=== PATIENT | male | born 1965 | race Caucasian/White ===

== ENCOUNTER 2024-05-17 00:53 | Emergency (ER) | payer OTHER, SELFPAY ==
[2024-05-17 00:58] VITALS: BP 160/100; PULSE 44; RESP 18; TEMP 36.7; O2SAT 97; BMI 28.5
--- NOTE | 2024-05-17 01:05 | CTR_ITS ---
PROCEDURE INFORMATION: Exam: CT Abdomen And Pelvis Without Contrast Exam date and time: 05/17/2024 1:28 AM Age: 59 years old Clinical indication: Abdominal pain; Additional info: RT flank pain TECHNIQUE: Imaging protocol: Computed tomography of the abdomen and pelvis without contrast. Radiation optimization: All CT scans at this facility use at least one of these dose optimization techniques: automated exposure control; mA and/or kV adjustment per patient size (includes targeted exams where dose is matched to clinical indication); or iterative reconstruction. COMPARISON: No relevant prior studies available. RADIATION DOSE METRICS: Total DLP (mGy-cm): 794.3 FINDINGS: Lungs: Minimal basilar atelectasis. Heart: Base of heart is unremarkable as visualized. Liver: Normal. No mass. Gallbladder and biliary ducts: Normal. No calcified stones. No ductal dilation. Pancreas: Mild fatty atrophy of the pancreas. Spleen: Normal. No splenomegaly. Adrenal glands: Normal. No mass. Kidneys and ureters: Proximal 3rd of the right ureter demonstrates a punctate calcified urinary stone measuring up to 3.2 mm. Results in mild upstream ureterectasis, moderate pelviectasis, moderate hydronephrosis. Right kidney appears mildly edematous and hypertrophic upon comparison with the left normal-appearing kidney. Stomach and bowel: Mild colonic stool burden. Appendix: No evidence of appendicitis. Intraperitoneal space: Unremarkable. No free air. No significant fluid collection. Vasculature: Calcified pelvic phleboliths. Lymph nodes: Unremarkable. No enlarged lymph nodes. Urinary bladder: Unremarkable as visualized. Reproductive: Central dystrophic calcifications of the prostate. Bones/joints: Mild to moderate degenerative change of the visualized osseous structures. Soft tissues: Unremarkable. CT/CT abdomen pelvis wo con [id number] IMPRESSION: 1. Obstructing urinary stone within the proximal 3rd of the right ureter as detailed above. 2. Additional nonacute findings as above.
[2024-05-17] MEDS: sodium chloride 0.9% 1,000 ML 999 ML IV (01:12)
[2024-05-17] MEDS: HYDROmorphone 1 mg/mL INJ 1 mL IVP ×2 (01:13→02:24)
[2024-05-17] MEDS: ondansetron 2 mg/ML SDV 2 mL 8 MG IVP ×2 (01:13→02:21)
[2024-05-17 01:19] LABS: Basophils # 0.1 10^3/uL (0.0-0.1); Basophils % 1.2 %; Eosinophils # 0.1 10^3/uL (0.0-0.8); Eosinophils % 2.3 %; Hematocrit 40.3 % (37-53); Lymphocytes % 49.7 %; Mean Corpuscular Hemoglobin 30.4 pg (27-33); Mean Corpuscular Volume 89.6 fl (82-101); Mean Platelet Volume 9.7 fL (7.4-10.4); Monocytes # 0.6 10^3/uL (0.2-0.9); Monocytes % 9.2 %; Neutrophils # 2.23 10^3/uL (1.8-7.7); Neutrophils % 37.4 %; Nucleated Red Blood Cells % 0 %; Platelet Count 215 10^3/cmm (157-399); Red Cell Distribution Width 12.6 % (12.1-15.1); White Blood Count 5.96 10^3/uL (3.29-11.43)
[2024-05-17 01:36] LABS: Alanine Aminotransferase 27 U/L (0-41); Albumin Level 4.2 g/dL (3.5-5.2); Alkaline Phosphatase 78 U/L (40-130); Anion Gap 15.6 (5-19); Aspartate Amino Transferase 26 U/L (0-40); Blood Urea Nitrogen 22 mg/dL (6-20); Calcium 8.9 mg/dL (8.5-10.5); Carbon Dioxide 24 mmol/L (22-29); Chloride 102 mmol/L (98-107); Globulin 3.5 g/dL (1.3-4.6); Glucose 124 mg/dL (65-115); Lipase 42 U/L (13-60); Osmolality Calculated 291 mOsm/kg (285-295); Potassium 3.6 mmol/L (3.5-5.1); Sodium 138 mmol/L (136-145); Total Bilirubin 0.2 mg/dL (0.15-1.2); Total Protein 7.7 g/dL (6.6-8.7)
[2024-05-17 01:37] LABS: Lactic Sepsis W/Reflex 1.6 mmol/L (0.5-2.2)
--- NOTE | 2024-05-17 01:49 | ED_ITS ---
HPI - Abdominal Pain 2 General: Chief Complaint: Abdominal Pain Stated Complaint: Abd pain Time Seen by Provider: 05/17/24 01:00 History of Present Illness: 59-year-old man who presents emergency r oom with right flank pain, nausea and vomiting. Pain radiates into his right lower abdomen. He appears in some distress when he arrives. Diaphoretic and vomiting. No fevers. No diarrhea. No chest pain. No altered mental status Review of Systems 2 Narrative: Constitutional symptoms: Negative except as documented in HPI. Skin symptoms: Negative except as documented in HPI. Eye symptoms: Negative except as documented in HPI. ENMT symptoms: Negative except as documented in HPI. Respiratory symptoms: Negative except as documented in HPI. Cardiovascular symptoms: Negative except as documented in HPI. Gastrointestinal symptoms: Negative except as documented in HPI. Genitourinary symptoms: Negative except as documented in HPI. Musculoskeletal symptoms: Negative except as documented in HPI. Neurologic symptoms: Negative except as documented in HPI. Psychiatric symptoms: Negative except as documented in HPI. Endocrine symptoms: Negative except as documented in HPI. Physical Exam 2 Narrative: EXAM NARRATIVE: General: Alert, no acute distress. Skin: Warm, diaphoretic. Head: Normocephalic, atraumatic. Neck: Supple, trachea midline. Eye: Extraocular movements are intact. Ears, nose, mouth and throat: mucosa moist. Cardiovascular: Regular, Normal peripheral perfusion. Respiratory: Lungs are clear to auscultation, respirations are non-labored, breath sounds are equal, Symmetrical chest wall expansion. Gastrointestinal: Soft, right flank pain, Non distended Musculoskeletal: Normal ROM, no deformity. Neurological: Alert and oriented, No focal neurological deficit observed. Psychiatric: Cooperative, appropriate mood & affect. Course 2 Vital Signs: Vital signs: Vital Signs Temperature 98.0 F 05/17/24 00:58 Pulse Rate 41 L 05/17/24 02:28 Respiratory Rate 20 H 05/17/24 02:28 Blood Pressure 123/70 05/17/24 02:28 Pulse Oximetry 95 05/17/24 02:28 Oxygen Delivery Me thod Room Air 05/17/24 00:58 MDM - Abdominal Pain Medical Decision Making Medical decision making: Differential diagnosis including but not limited to and based on the above HPI, review of systems and physical exam: Ureterolithiasis. Urinary tract infection. Appendicitis. Cholecystis. Musculoskeletal / back pain. Pyelonephritis Orders placed to evaluate differential diagnosis based on the above differential, HPI and physical exam CT of the abdomen pelvis without contrast: There is some mild hydronephrosis on the right and a mid ureteral kidney stone. This was reviewed and interpreted by myself the emergency room physician. I also reviewed the radiology report. Lab Review: Laboratory results were reviewed and interpreted by myself the emergency room physician. No leukocytosis. No renal failure. LBM was up a little bit indicating some dehydration since fluids were given. Urine was positive for hematuria. CT of the abdomen pelvis without contrast: Mid ureteral 3 mm stone. Some hydronephrosis. This was reviewed and interpreted by myself the emergency room physician. I also reviewed the radiology report. I reviewed the patient's medical record. Reexamination: It took quite a bit of pain medicine but patient finally did receive some pain control. No altered mental status. No increased work of breathing. Assessment and plan: Ureterolithiasis Dehydration ?Normal saline bolus, Two 1 mg doses of Dilaudid. Two 8 mg doses of Zofran. IV Toradol. Home with 2 doses of [place]. - Discharged home - Discussed findings and plan with patient. Answered any questions. - All laboratory values were reviewed and interpreted personally by myself, the ER physician - All imaging was reviewed and interpreted personally by myself, the ER physician. - Evaluation and treatment of this problem were appropriate in the emergency setting Lab Data 05/17/24 01:05 05/17/24 01:05 Labs/Radiology: Radiology Impressions Abdomen/Pelvis CT 05/17/24 01:05 IMPRESSION: 1. Obstructing urinary stone within the proximal 3rd of the right ureter as detailed above. 2. Additional nonacute findings as above. Laboratory Results WBC 5.96 10^3/uL (3.29-11.43) 05/17/24 01:05 RBC 4.50 10^6/uL (3.85-5.65) 05/17/24 01:05 Hgb 13.70 g/dL (11.27-16.99) 05/17/24 01:05 Hct 40.3 % (37-53) 05/17/24 01:05 MCV 89.6 fl (82-101) 05/17/24 01:05 MCH 30.4 pg (27-33) 05/17/24 01:05 MCHC 34.0 g/dL (30-55) 05/17/24 01:05 RDW 12.6 % (12.1-15.1) 05/17/24 01:05 Plt Count 215 10^3/cmm (157-399) 05/17/24 01:05 MPV 9.7 fL (7.4-10.4) 05/17/24 01:05 Neut % (Auto) 37.4 % 05/17/24 01:05 Lymph % (Auto) 49.7 % 05/17/24 01:05 [place] % (Auto) 9.2 % 05/17/24 01:05 Eos % (Auto) 2.3 % 05/17/24 01:05 Baso % (Auto) 1.2 % 05/17/24 01:05 Neut # (Auto) 2.23 10^3/uL (1.8-7.7) 05/17/24 01:05 Lymph # (Auto) 3.0 10^3/uL (0.8-4.8) 05/17/24 01:05 [place] # (Auto) 0.6 10^3/uL (0.2-0.9) 05/17/24 01:05 Eos # (Auto) 0.1 10^3/uL (0.0-0.8) 05/17/24 01:05 Baso # (Auto) 0.1 10^3/uL (0.0-0.1) 05/17/24 01:05 Nucleated RBC % (auto) 0 % 05/17/24 01:05 Nucleated RBCs # 0.0 /100WBC 05/17/24 01:05 Sodium 138 mmol/L (136-145) 05/17/24 01:05 Potassium 3.6 mmol/L (3.5-5.1) 05/17/24 01:05 Chloride 102 mmol/L (98-107) 05/17/24 01:05 Carbon Dioxide 24 mmol/L (22-29) 05/17/24 01:05 Anion Gap 15.6 (5-19) 05/17/24 01:05 BUN 22 mg/dL (6-20) H 05/17/24 01:05 Creatinine 1.0 mg/dL (0.7-1.2) 05/17/24 01:05 GFR Calculation 77.0 mL/min (90-130) L 05/17/24 01:05 Glucose 124 mg/dL (65-115) H 05/17/24 01:05 Calculated Osmolality 291 mOsm/kg (285-295) 05/17/24 01:05 Lactic Acid 1.6 mmol/L (0.5-2.2) 05/17/24 01:05 Calcium 8.9 mg/dL (8.5-10.5) 05/17/24 01:05 Total Bilirubin 0.2 mg/dL (0.15-1.2) 05/17/24 01:05 AST 26 U/L (0-40) 05/17/24 01:05 ALT 27 U/L (0-41) 05/17/24 01:05 Alkaline Phosphatase 78 U/L (40-130) 05/17/24 01:05 C-Reactive Protein 3.0 mg/L (0.0-4.9) 05/17/24 01:05 Total Protein 7.7 g/dL (6.6-8.7) 05/17/24 01:05 Albumin 4.2 g/dL (3.5-5.2) 05/17/24 01:05 Globulin 3.5 g/dL (1.3-4.6) 05/17/24 01:05 Lipase 42 U/L (13-60) 05/17/24 01:05 Urine Color Dark yellow (Yellow) A 05/17/24 01:38 Urine Appearance Cloudy (CLEAR) A 05/17/24 01:38 Urine pH 5 (5-7) 05/17/24 01:38 Ur Specific [place] 1.030 (1.005-1.030) 05/17/24 01:38 Urine Protein 2+ (Negative) H 05/17/24 01:38 Urine Glucose (UA) Norm (Normal) 05/17/24 01:38 Urine Ketones 1+ (Negative) H 05/17/24 01:38 Urine Blood 3+ (Negative) H 05/17/24 01:38 Urine Nitrate Positive (Negative) A 05/17/24 01:38 Urine Bilirubin Neg (Negative) 05/17/24 01:38 Urine Urobilinogen 1 mg/dL (Negative) H 05/17/24 01:38 Ur Leukocyte Esterase Trace (Negative) H 05/17/24 01:38 Urine RBC >100 /hpf (0-2) H 05/17/24 01:38 Urine WBC 0-4 /hpf (0-5) H 05/17/24 01:38 Ur Squamous Epith Cells None /hpf (0-5) 05/17/24 01:38 Amorphous Sediment Not Reportable 05/17/24 01:38 Urine Bacteria 2+ /hpf (NONE) H 05/17/24 01:38 Urine Mucus 2+ /hpf 05/17/24 01:38 All radiology interpretation(s) finalized by discharge Discharge Plan Discharge Patient Disposition: Home Clinical Impression: Ureterolithiasis Condition: Stable Prescriptions: New hydrocodone-acetaminophen 5-325 mg tablet 1 tab PO Q6H PRN (Reason: pain) Qty: 20 0RF ondansetron 8 mg tablet,disintegrating 8 mg PO .q6 PRN (Reason: nausea and vomiting) Qty: 14 0RF Flomax 0.4 mg capsule 0.4 mg PO DAILY Qty: 30 0RF Miralax 17 gram/dose powder 17 g PO DAILY Qty: 510 0RF Rx Instructions: Take 1 scoop daily while taking pain medications. No Action amoxicillin-pot clavulanate 875-125 mg tablet 1 tab PO BID 10 Days Qty: 20 0RF ondansetron HCl 4 mg tablet 4 mg PO Q8H PRN (Reason: nausea and vomiting) Qty: 10 0RF Discharge Orders: Discharge ED (Routine); Ordered 05/17/24 Ordered By: Nayeli Plasencia Referrals: Alex Wilkerson [Referring] - (Please call for an appoint with Dr. Wilkerson or the urologist of your choosing.) Discharge Diet: Usual diet Discharge Activity: Resume usual activity Patient Instructions: Kidney Stones (ED) Activity Restrictions/Additional Instructions: Thank you for choosing [facility] for your healthcare needs today. Please realize this is an emergency room and that we are providing you with a medical screening exam and this may not be complete and all inclusive of all the testing and or work up that you may need to determine your ailment or severity of your illness. You have been screened and evaluated and felt safe for discharge. Health conditions do change or evolve sometimes and as such it is important that you follow up with your Primary Doctor to be re checked, 3-5 days is a general good time frame for follow up. You are always welcome to return to the ED for re assessment if your symptoms are worsening or you have new concerns Coding Level of Care Code ED Adult Family Home Program Manager for Nirmala Nunez
[2024-05-17 01:55] LABS: Add Urine Culture? Yes; Bacteria Urine 2+ /hpf; Bilirubin Urine Neg (Negative); Blood Urine 3+ (Negative); Glucose Urine UA Norm (Normal); Ketones Urine 1+ (Negative); Leukocyte Esterase Urine Trace (Negative); Mucus Urine 2+ /hpf; Nitrate Urine Positive (Negative); Protein Urine 2+ (Negative); RBC Urine >100 /hpf (0-2); Urine Appearance Cloudy (CLEAR); Urine Color Dark Yellow (Yellow); Urobilinogen Urine 1 mg/dL (Negative); WBC Urine 0-4 /hpf (0-5); pH Urine 5 (5-7)
[2024-05-17] MEDS: ketorolac 30 mg/mL INJ IVP (02:21)
[2024-05-17 02:28] VITALS: BP 123/70; PULSE 41; RESP 20; O2SAT 95
[2024-05-17 04:01] VITALS: BP 118/77; PULSE 40; RESP 16; O2SAT 95
[2024-05-17] MEDS: HYDROcodone-acetaminophen 10-325 mg Tablet 2 TAB PO (04:05)
[2024-05-17 04:14] VITALS: BP 118/77; PULSE 40; RESP 16; TEMP 36.7; O2SAT 95
== END 2024-05-17 04:16 | disposition home or self-care (01) ==
PROVIDERS: Emergency Provider Emergency Medicine
DX: N20.1 Calculus of ureter (principal)
CPT/HCPCS: 74176; 80053; 81001; 83605; 83690; 85025; 86140; 87086; 96374; 96375; 96376; 99284; J1170; J1885; J2405; J7030

== ENCOUNTER 2024-05-19 20:17 | Emergency (ER) | payer OTHER, SELFPAY ==
[2024-05-19 20:18] VITALS: BP 165/91; PULSE 51; RESP 16; TEMP 36.9; O2SAT 97; BMI 28.5
--- NOTE | 2024-05-19 20:58 | ED_ITS ---
HPI - Dental/Oral General: Chief complaint: Dental/Oral Stated complaint: Tooth Ache Time Seen by Provider: 05/19/24 20:47 History of Present Illness: HPI: Patient with history of poor dentition, recent kidney stone, presenting for right posterior lower molar pain. States that these teeth have been bothersome on and off for some years but over the last 24 hours has become more painful and tender in that area. Patient took 2 tabs of hydrocodone prior to coming to the emergency department that he was given for his kidney stones. States his pain is largely abated but he is concerned that the tooth is possibly infected. No fevers, sweats, chills. Patient has been feeling intermittently nauseous. ROS: 10 systems reviewed and otherwise unrema rkable except for those noted in HPI. Physical Exam: Triage vital signs reviewed General: No acute distress, cooperative and comfortable HEENT: Normocephalic, atraumatic, external ears normal, moist mucous membranes, PERRLA. Examination of the oropharynx indicates upper dentures present, lower posterior most molar with necrotic socket and diffuse tenderness without purulence or halitosis. Chest: Normal inspection, equal rise and fall, no edema Respiratory: Normal respiratory effort, no atypical respiratory sounds GI: Non-tender to palpation, non-distended, Extremities: Moving all 4 extremities easily, no deformities Neuro: No meningeal signs, motor function in the room without abnormalities, sensation intact Skin: No rashes, bruising, warm, dry Psychiatric: Normal mood and affect Procedures: N/A MDM: Considered diagnoses include but are not limited to peridental infection, systemic infection, risk of infection spread, bacteremia. Vital signs nonactionable. Based on history, exam, feel SIRS criteria not met at this time based on vital signs and well appearance of patient on exam not indicating further intervention at this time. Gave one-time dose of Augmentin in the ER and discharged with prescription for Augmentin at home. Patient educated about reasons to return to the emergency department including signs of ongoing or changing condition. Advised to make an appointment with primary care or to establish care with a primary care provider to review all results from this encounter. This note was written with assistance of dictation software. Contact author for any clarification of typos. Aung Soares MD Course Vital Signs: Vital signs: Vital Signs Temperature 98.4 F 05/19/24 20:18 Pulse Rate 51 L 05/19/24 20:18 Respiratory Rate 16 05/19/24 20:18 Blood Pressure 165/91 05/19/24 20:18 Pulse Oximetry 97 05/19/24 20:18 Oxygen Delivery Me thod Room Air 05/19/24 20:18 MDM - Dental/Oral Medical Decision Making See MDM No radiology studies performed this visit Discharge Plan Discharge Patient Disposition: Home Clinical Impression: Dental abscess Condition: Stable Prescriptions: New amoxicillin-pot clavulanate 875-125 mg tablet 1 tab PO BID 7 Days Qty: 14 0RF No Action amoxicillin-pot clavulanate 875-125 mg tablet 1 tab PO BID 10 Days Qty: 20 0RF ondansetron HCl 4 mg tablet 4 mg PO Q8H PRN (Reason: nausea and vomiting) Qty: 10 0RF hydrocodone-acetaminophen 5-325 mg tablet 1 tab PO Q6H PRN (Reason: pain) Qty: 20 0RF ondansetron 8 mg tablet,disintegrating 8 mg PO .q6 PRN (Reason: nausea and vomiting) Qty: 14 0RF Flomax 0.4 mg capsule 0.4 mg PO DAILY Qty: 30 0RF Miralax 17 gram/dose powder 17 g PO DAILY Qty: 510 0RF Rx Instructions: Take 1 scoop daily while taking pain medications. Discharge Orders: Discharge ED (Routine); Ordered 05/19/24 Ordered By: Aung Soares Referrals: Benigno Temple DO [Primary Care Provider] - Discharge Diet: Advance as tolerated Discharge Activity: Resume usual activity Patient Instructions: Opioid Safety, Pain Management Activity Restrictions/Additional Instructions: .It has been a pleasure caring for you in the emergency department. Please ensure that you follow-up with your primary care physician for review of all data obtained during this encounter including any incidental findings and laboratory values. Keep in mind that if your condition changes in any way I recommend that you return to the emergency department for repeat evaluation. Take 1000 mg of Tylenol and 400 mg of Motrin at breakfast lunch and dinner. Coding Level of Care Code ED Cloth Bleaching Supervisor for Nirmala Nunez
[2024-05-19] MEDS: amoxicillin-clav 875-125 mg Tablet 1 TAB PO (21:11)
[2024-05-19 21:17] VITALS: BP 140/88; PULSE 47; RESP 16; O2SAT 96
== END 2024-05-19 21:19 | disposition home or self-care (01) ==
PROVIDERS: Emergency Provider General Practice; PCP Emergency Medicine Emergency Medical Services
DX: K04.7 Periapical abscess without sinus (principal)
CPT/HCPCS: 99283

== ENCOUNTER 2024-10-27 09:26 | Emergency (ER) | payer OTHER, SELFPAY ==
[2024-10-27 09:55] VITALS: BP 141/78; PULSE 51; RESP 16; TEMP 36.4; O2SAT 99; BMI 29.1
--- NOTE | 2024-10-27 10:05 | XRR_ITS ---
PROCEDURE INFORMATION: Exam: XR Right Hand Exam date and time: 10/27/2024 10:17 AM Age: 59 years old Clinical indication: Swelling; Hand; Right; Additional info: Infection/swelling TECHNIQUE: Imaging protocol: Radiologic exam of the right hand. Views: 3 or more views. COMPARISON: No relevant prior studies available. FINDINGS: Bones/joints: Normal. Soft tissues: Nondescript soft tissue swelling. XR/XR hand RT min 3V* [id number] IMPRESSION: No acute findings.
[2024-10-27 11:04] LABS: Basophils # 0.1 10^3/uL (0.0-0.1); Basophils % 0.6 %; Eosinophils # 0.1 10^3/uL (0.0-0.8); Eosinophils % 0.5 %; Hematocrit 40.2 % (37-53); Lymphocytes # 1.7 10^3/uL (0.8-4.8); Lymphocytes % 16.6 %; Mean Corpuscular HGB Conc 33.1 g/dL (30-55); Mean Corpuscular Hemoglobin 29.9 pg (27-33); Mean Corpuscular Volume 90.3 fl (82-101); Mean Platelet Volume 9.7 fL (7.4-10.4); Monocytes # 0.9 10^3/uL (0.2-0.9); Monocytes % 8.7 %; Neutrophils # 7.26 10^3/uL (1.8-7.7); Neutrophils % 73.1 %; Nucleated Red Blood Cells % 0 %; Platelet Count 215 10^3/cmm (157-399); Red Blood Count 4.45 10^6/uL (3.85-5.65); Red Cell Distribution Width 12.9 % (12.1-15.1); White Blood Count 9.93 10^3/uL (3.29-11.43)
[2024-10-27 11:25] LABS: Alanine Aminotransferase 22 U/L (0-41); Alkaline Phosphatase 66 U/L (40-130); Anion Gap 15.7 (5-19); Aspartate Amino Transferase 23 U/L (0-40); Blood Urea Nitrogen 16 mg/dL (6-20); C Reactive Protein 60.7 mg/L (0.0-4.9); Calcium 8.9 mg/dL (8.5-10.5); Carbon Dioxide 23 mmol/L (22-29); Chloride 102 mmol/L (98-107); Globulin 3.6 g/dL (1.3-4.6); Glucose 100 mg/dL (65-115); Osmolality Calculated 285 mOsm/kg (285-295); Potassium 3.7 mmol/L (3.5-5.1); Sodium 137 mmol/L (136-145); Total Bilirubin 0.8 mg/dL (0.15-1.2); Total Protein 7.6 g/dL (6.6-8.7)
[2024-10-27 11:29] LABS: Erythrocyte Sedimentation Rate 13 mm/hr (0-10)
--- NOTE | 2024-10-27 13:56 | W.ED.EXTPRO ---
HPI - Extremity Problem General: Chief complaint: Extremity Problem,Nontraumatic Stated complaint: rt hand swelling Time Seen by Provider: 10/27/24 10:47 Source: patient and family Mode of arrival: ambulatory Limitations: no limitations History of Present Illness: Patient is a 59-year-old male presents to ED today with a complaint of swelling to his right thumb and lymphangitic streaking up his right arm. He states about 4 days ago he believed he had what he thought might be a splinter to the dorsum of his right thumb. thinks that maybe he got bit by a spider. Regardless the area has continued to fester and he now has swelling involving the entire right thumb and radial dorsal hand. He has now noticed lymphangitic streaking up into his AC space. He was reportedly seen at the [facility] and referred to the emergency department for further evaluation. Patient has not had any systemic symptoms. Tetanus is up-to-date. MD Complaint: extremity pain, extremity swelling, joint swelling and joint pain Onset (ago): day(s) Pain Consistency: constant Location: right and upper extremity Relieving factors: nothing Associated symptoms: Reports no associated symptoms; Deny fever(s) Related Data Home Medications Medication Instructions Recorded Confirmed ibuprofen 200 mg tablet 200 mg PO Q6H PRN Pain 10/27/24 10/27/24 Allergies Allergy/AdvReac Type Severity Reaction Status Date / Time No Known Allergies Allergy Verified 10/27/24 10:02 Review of Systems Const: Denies: fever(s), chills, body aches, fatigue or malaise Musc: Reports: extremity pain, extremity swelling, joint pain, joint swelling, joint redness and joint warmth Neuro: Denies: numbness in extremities, weakness in extremities or sensory changes Physical Exam Const: COMMON NORMALS: no acute distress, average body habitus, patient oriented x3, no limitations, healthy appearing, alert and well nourished GENERAL APPEARANCE: cooperative Resp: COMMON NORMALS: normal respiratory effort and clear to auscultation bilaterally AUSCULTATION: clear to auscultation bilaterally Cardio: COMMON NORMALS: regular rate and regular rhythm RATE: regular rate RHYTHM: regular rhythm Extremity: COMMON NORMALS: capillary refill normal GENERAL: Yes normal exam except as noted RIGHT UPPER EXTREMITY: Yes lower arm and Yes hand & digits OTHER: pt has diffuse erythema and edema involving R thumb with probable abscess formation to dorsal R thumb overlying proximal phalanx; he has diffuse swelling to dorsum of hand and throughout thenar eminence; he has lymphangitic streaking involving his volar forearm up into his AC space Neuro: COMMON NORMALS: patient oriented x3, moves all extremities, no focal motor deficits and no sensory deficits noted SENSORIUM/ORIENTATION: Yes alert Skin: NARRATIVE SKIN EXAM: see above for pertinent skin findings Course Consultations: Consultation #1: [facility] transfer line stated Dr. Benitez, hand surgery, would consult on patient upon arrival Consultation #2: [facility] hospitalist accepts patient; accepting physician is Dr. Escoto Vital Signs: Vital signs: Vital Signs Temperature 97.5 F L 10/27/24 09:55 Pulse Rate 56 L 10/27/24 16:24 Respiratory Rate 18 10/27/24 16:24 Blood Pressure 137/63 10/27/24 16:24 Pulse Oximetry 100 10/27/24 16:24 Oxygen Delivery Me thod Room Air 10/27/24 16:24 MDM - Extremity (Nontraumatic) Medical Decision Making Patient here for worsening infection regarding his right thumb and hand along with lymphangitic streaking up his forearm. Clinically he has an abscess to the dorsal aspect of the right thumb that will require hand surgery. Spoke to Dr. Newell regarding case and reviewed pictures of patient's clinical presentation. He agrees with care here and decision to transfer to hand surgery. He has been accepted by [facility] hospitalist group with Dr. Benitez, hand surgery, to consult on patient upon arrival. He was started on IV antibiotics here. Medical Records I reviewed the patient's medical records. Lab Data I reviewed the patient's lab results. 10/27/24 10:55 10/27/24 10:55 Radiology Impressions Hand X-Ray 10/27/24 10:05 IMPRESSION: No acute findings. Hand CT 10/27/24 14:02 IMPRESSION: 1. Joint effusion involving the 1st MCP joint without bony abnormality. I cannot exclude septic joint here. 2. Extensive cellulitis 3. No evidence of osteomyelitis Laboratory Results WBC 9.93 10^3/uL (3.29-11.43) 10/27/24 10:55 RBC 4.45 10^6/uL (3.85-5.65) 10/27/24 10:55 Hgb 13.30 g/dL (11.27-16.99) 10/27/24 10:55 Hct 40.2 % (37-53) 10/27/24 10:55 MCV 90.3 fl (82-101) 10/27/24 10:55 MCH 29.9 pg (27-33) 10/27/24 10:55 MCHC 33.1 g/dL (30-55) 10/27/24 10:55 RDW 12.9 % (12.1-15.1) 10/27/24 10:55 Plt Count 215 10^3/cmm (157-399) 10/27/24 10:55 MPV 9.7 fL (7.4-10.4) 10/27/24 10:55 Neut % (Auto) 73.1 % 10/27/24 10:55 Lymph % (Auto) 16.6 % 10/27/24 10:55 [place] % (Auto) 8.7 % 10/27/24 10:55 Eos % (Auto) 0.5 % 10/27/24 10:55 Baso % (Auto) 0.6 % 10/27/24 10:55 Neut # (Auto) 7.26 10^3/uL (1.8-7.7) 10/27/24 10:55 Lymph # (Auto) 1.7 10^3/uL (0.8-4.8) 10/27/24 10:55 [place] # (Auto) 0.9 10^3/uL (0.2-0.9) 10/27/24 10:55 Eos # (Auto) 0.1 10^3/uL (0.0-0.8) 10/27/24 10:55 Baso # (Auto) 0.1 10^3/uL (0.0-0.1) 10/27/24 10:55 Nucleated RBC % (auto) 0 % 10/27/24 10:55 Nucleated RBCs # 0.0 /100WBC 10/27/24 10:55 ESR 13 mm/hr (0-10) H 10/27/24 10:55 Sodium 137 mmol/L (136-145) 10/27/24 10:55 Potassium 3.7 mmol/L (3.5-5.1) 10/27/24 10:55 Chloride 102 mmol/L (98-107) 10/27/24 10:55 Carbon Dioxide 23 mmol/L (22-29) 10/27/24 10:55 Anion Gap 15.7 (5-19) 10/27/24 10:55 BUN 16 mg/dL (6-20) 10/27/24 10:55 Creatinine 0.9 mg/dL (0.7-1.2) 10/27/24 10:55 GFR Calculation 87.0 mL/min (90-130) L 10/27/24 10:55 Glucose 100 mg/dL (65-115) 10/27/24 10:55 Calculated Osmolality 285 mOsm/kg (285-295) 10/27/24 10:55 Calcium 8.9 mg/dL (8.5-10.5) 10/27/24 10:55 Total Bilirubin 0.8 mg/dL (0.15-1.2) 10/27/24 10:55 AST 23 U/L (0-40) 10/27/24 10:55 ALT 22 U/L (0-41) 10/27/24 10:55 Alkaline Phosphatase 66 U/L (40-130) 10/27/24 10:55 C-Reactive Protein 60.7 mg/L (0.0-4.9) H 10/27/24 10:55 Total Protein 7.6 g/dL (6.6-8.7) 10/27/24 10:55 Albumin 4.0 g/dL (3.5-5.2) 10/27/24 10:55 Globulin 3.6 g/dL (1.3-4.6) 10/27/24 10:55 All radiology interpretation(s) finalized by discharge Discharge Plan Discharge Patient Disposition: Xfer Short-Term Hosp Clinical Impression: Abscess of thumb, right, Lymphangitis of upper extremity Condition: Stable Prescriptions: No Action ibuprofen 200 mg Tablet 200 mg PO Q6H PRN (Reason: Pain) Referrals: Benigno Temple DO [Primary Care Provider] - Coding Level of Care Code ED Group Sales Coordinator for Nirmala Nunez
--- NOTE | 2024-10-27 14:02 | CTR_ITS ---
PROCEDURE INFORMATION: Exam: CT Right Upper Extremity With Contrast, Hand Exam date and time: 10/27/2024 2:47 PM Age: 59 years old Clinical indication: Fingers and hand; Patient HX: PT here via pov with C/O swelling of right hand. PT states he has a wound on his right thumb that started 3-4 days ago, PT states that he thought he had a splinter in his thumb. PT states right hand swelling started yesterday. PT had open wound on right thumb, PT right hand is swollen, reddened, and warm to touch. PT has reddened streak from hand to right forearm. ; Additional info: Hand/thumb infection TECHNIQUE: Imaging protocol: Computed tomography of the right upper extremity with contrast. Exam focused on the hand. Radiation optimization: All CT scans at this facility use at least one of these dose optimization techniques: automated exposure control; mA and/or kV adjustment per patient size (includes targeted exams where dose is matched to clinical indication); or iterative reconstruction. Contrast material: OMNI 350; Contrast volume: 100 ml; Contrast route: INTRAVENOUS (IV); COMPARISON: CR XR hand RT min 3V* [id number] 10/27/2024 10:17 AM RADIATION DOSE METRICS: Total DLP (mGy-cm): 162.88 FINDINGS: Bones/joints: There is a small joint effusion involving the 1st MCP joint. No bony abnormality is noted. Soft tissues: Severe soft tissue swelling involves the thumb and the soft tissue swelling extends into the dorsum of the hand. No soft tissue abscess can be seen. I see no foreign body or soft tissue air. CT/CT hand RT w con [id number] IMPRESSION: 1. Joint effusion involving the 1st MCP joint without bony abnormality. I cannot exclude septic joint here. 2. Extensive cellulitis 3. No evidence of osteomyelitis
[2024-10-27 14:05] VITALS: BP 139/61; PULSE 88; RESP 16; O2SAT 100
[2024-10-27] MEDS: vancomycin 1,250 MG/250 ML PIGGYBACK 166.67 MG IV (14:44)
--- NOTE | 2024-10-27 14:45 | PC.PHAR ---
[facility] is [facility] 10/27/24 1:50pm
[2024-10-27] MEDS: iohexol 350 mg/mL 500 mL Btl (per mL) IV (14:59)
[2024-10-27 16:24] VITALS: BP 137/63; PULSE 56; RESP 18; O2SAT 100
[2024-10-27 17:33] VITALS: BP 138/69; PULSE 62; RESP 16; O2SAT 99
--- NOTE | 2024-10-27 17:49 | PC.NURSE ---
REPORT CALLED TO SANDY STOKES STATED PATIENT OK TO GO BY POV BY IV IN PLACE IF THEY CHOOSE TO.
[2024-10-27 18:01] VITALS: PULSE 62; O2SAT 99
[2024-10-27 19:59] VITALS: BP 157/82; PULSE 64; RESP 20; O2SAT 98
--- NOTE | 2024-10-27 20:26 | PC.NURSE ---
PER PROVIDER, PT LEFT AND WENT POV TO [facility]. CALLED NURSE AT [facility] AND NOTIFIED THEM THAT PT WAS LEAVING WITH IV AND WERE COMING STRAIGHT TO HOSPITAL.
== END 2024-10-27 19:59 | disposition short-term general hospital (02) ==
PROVIDERS: Emergency Provider Physician Assistant; PCP Emergency Medicine Emergency Medical Services
DX: L02.511 Cutaneous abscess of right hand (principal); I89.1 Lymphangitis
CPT/HCPCS: 73130; 73201; 80053; 85025; 85651; 86140; 87040; 96365; 96366; 99285; J3370